=== PATIENT | male | born 1995 | race Caucasian/White ===

== ENCOUNTER 2023-08-01 18:39 | Emergency (ER) | payer BC, SELFPAY ==
[2023-08-01 18:54] VITALS: BP 101/78; PULSE 117; RESP 16; TEMP 36.7; O2SAT 100; BMI 19.5
--- NOTE | 2023-08-01 19:54 | ED_ITS ---
HPI - Abdominal Pain 2 General: Chief Complaint: Abdominal Pain Stated Complaint: Cant Eat Time Seen by Provider: 08/01/23 19:53 History of Present Illness: 28-year-old male presents to the emergen cy department with his mother. Patient states that he normally lives in [facility] but is down in this area because of his grandmother who had a hospitalization and remains hospitalized. Patient states he has had a history of pancreatitis several times and has also been told that his chronic alcohol use has caused him to have atrial fibrillation and congestive heart failure. He endorses having history of intermittent jaundice as well as abdominal ascites from alcohol. He states that today he presents to the emergency department with complaints of feeling full easily and that he is unable to eat more than 3 or 4 bites of anything in a single day before he becomes immediately full and feels nauseated. He states he has cut back on his alcohol intake but has not stopped as previously advised. He also states that he is not taking any of his atrial fibrillation medications or heart failure medications. He does endorse intermittent epigastric pain but states he only has a 2 out of 10 dull epigastric pain today. Associated Symptoms: Reports other (Early satiety) Review of Systems 2 General: Reports: 10 or more systems reviewed and unremarkable except in HPI and below GI: Reports: abdominal pain and other (Early satiety) Psych: Reports: other (Alcohol abuse) Physical Exam 2 Narrative: EXAM NARRATIVE: Constitutional: the patient appears well nourished and of normal development. Vital signs as documented. No acute distress at present. Alert and oriented-to person, place, time and situation. Head, eyes, ears, nose, mouth, throat: Normocephalic, atraumatic. Pupils-equal, round, reactive to light. No scleral icterus. Normal-appearing external ears. Normal appearing nasal turbinates, no drainage. No obvious oral lesions, posterior oropharynx without erythema or exudates. Neck: Supple, trachea is midline, no lymphadenopathy, no jugular venous distension, thyromegaly, or carotid bruits. Carotid upstrokes are brisk bilaterally. Lungs: clear to auscultation to all lung rey. Symmetrical rise and fall of chest, no obvious signs of increased work of breathing at present. Cardiac: Regular rate and rhythm, positive S1, S2. No murmurs, rubs or gallops that I can appreciate Abdomen: Soft, epigastric tenderness to palpation normal active bowel sounds to all quadrants. No palpable masses, the liver is palpable approximately 2 cm to 3 cm below the costal margin Extremities: 2+ pulses in the upper extremities that are equal bilaterally, 2+ pulses in the lower extremities that are equal bilaterally. Non-edematous. Moves all extremities well, sensation to all extremities are noted. Skin: Warm, dry, intact. Course 2 ED course: I again had an extensive discussion with the patient and at his request with his mother who is present in the room. 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 I extensively explained the critical nature of these findings and the extreme importance of additional treatment and care and the risk and complications if care was not immediately undertaken. Patient stated that he understood all of this information and that he did not want to be transferred or receive additional treatment and that he would think about all of the information and would follow-up in [place] where he is from and where his physicians know him. I did advise him that he may return to the emergency department at any time for any reason or if his symptoms worsen or return. Patient verbalized understanding all information is provided and was able to paraphrase the risk and possible complications of refusal of additional care as well as the benefits of allowing additional medical treatment and care. I advised him that I could not discharge him in the condition that he is in and he stated that he wanted to sign out AGAINST MEDICAL ADVICE and understands all the risk and possible complications that could occur Reevaluation(s): Reevaluation #1: I again had an extensive discussion with the patient and at his request with his mother who is present in the room. 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 I extensively explained the critical nature of these findings and the extreme importance of additional treatment and care and the risk and complications if care was not immediately undertaken. Patient stated that he understood all of this information and that he did not want to be transferred or receive additional treatment and that he would think about all of the information and would follow-up in [place] where he is from and where his physicians know him. I did advise him that he may return to the emergency department at any time for any reason or if his symptoms worsen or return. Patient verbalized understanding all information is provided and was able to paraphrase the risk and possible complications of refusal of additional care as well as the benefits of allowing additional medical treatment and care. I advised him that I could not discharge him in the condition that he is in and he stated that he wanted to sign out AGAINST MEDICAL ADVICE and understands all the risk and possible complications that could occur. Time: 21:46 Vital Signs: Vital signs: Vital Signs Temperature 98.0 F 08/01/23 18:54 Pulse Rate 113 H 08/01/23 20:31 Respiratory Rate 16 08/01/23 20:31 Blood Pressure 151/112 08/01/23 20:31 Pulse Oximetry 99 08/01/23 20:31 Oxygen Delivery Me thod Room Air 08/01/23 18:54 MDM - Abdominal Pain Medical Decision Making 28-year-old male with chronic alcohol abuse with resultant heart failure, atrial fibrillation and recurrent pancreatitis presents for complaints of epigastric pain and early satiety. He does have medication noncompliance. He does have access to his medications but has decided not to take them. We will obtain a CBC, CMP and lipase as well a CT scan of the abdomen pelvis to evaluate for pancreatic necrosis, bowel obstruction, esophageal obstruction, necrotizing pancreatitis, thrombus or pancreatic pseudocyst. Lab Data I reviewed the patient's lab results. 08/01/23 20:27 08/01/23 20:27 Labs/Radiology: Radiology Impressions Abdomen/Pelvis CT 08/01/23 20:14 IMPRESSION: 1. Acute necrotizing pancreatitis with developing pseudocysts and complete splenic vein thrombosis. 2. Nonocclusive thrombus within the main portal vein, portal venous confluence and distal SMV. 3. Secondary inflammation of the gastric body with a 6 cm pseudocyst along the greater curvature. THIS REPORT CONTAINS FINDINGS THAT MAY BE CRITICAL TO PATIENT CARE. The findings were verbally communicated by telephone with LINDA Paz at 9:01 PM [employer] on 08/01/2023. The findings were acknowledged and understood. Laboratory Results WBC 8.00 10^3/uL (3.29-11.43) 08/01/23 20: RBC 5.93 10^6/uL (3.85-5.65) H 08/01/23 20: Hgb 19.00 g/dL (11.27-16.99) H 08/01/23 Hct 57.0 % (37-53) H 08/01/23 MCV 96.1 fl (82-101) 08/01/23 MCH 32.0 pg (27-33) 08/01/23 MCHC 33.3 g/dL (30-55) 08/01/23 RDW 12.9 % (12.1-15.1) 08/01/23 Plt Count 215 10^3/cmm (157-399) 08/01/23 MPV 9.0 fL (7.4-10.4) 08/01/23 Neut % (Auto) 74.0 % 08/01/23 Lymph % (Auto) 13.6 % 08/01/23 O'Brien % (Auto) 9.4 % 08/01/23 Eos % (Auto) 1.8 % 08/01/23 Baso % (Auto) 0.6 % 08/01/23 Neut # (Auto) 5.92 10^3/uL (1.8-7.7) 08/01/23 Lymph # (Auto) 1.1 10^3/uL (0.8-4.8) 08/01/23 O'Brien # (Auto) 0.8 10^3/uL (0.2-0.9) 08/01/23 Eos # (Auto) 0.1 10^3/uL (0.0-0.8) 08/01/23 Baso # (Auto) 0.1 10^3/uL (0.0-0.1) 08/01/23 Nucleated RBC % (auto) 0 % 08/01/23 Nucleated RBCs # 0.0 /100WBC 08/01/23 Sodium 133 mmol/L (136-145) L 08/01/23 Potassium 4.2 mmol/L (3.5-5.1) 08/01/23 Chloride 94 mmol/L (98-107) L 08/01/23 Carbon Dioxide 24 mmol/L (22-29) 08/01/23 20: Anion Gap 19.2 (5-19) H 08/01/23 20: BUN 9 mg/dL (6-20) 08/01/23 20: Creatinine 0.8 mg/dL (0.7-1.2) 08/01/23 20: GFR Calculation 116.0 mL/min (90-130) 08/01/23: Glucose 173 mg/dL (65-115) H 08/01/23 20: Calculated Osmolality 279 mOsm/kg (285-295) L 08/01/23: Lactic Acid 1.5 mmol/L (0.5-2.2) 08/01/23: Calcium 9.7 mg/dL (8.5-10.5) 08/01/23: Total Bilirubin 0.8 mg/dL (0.15-1.2) 08/01/23: AST 55 U/L (0-40) H 08/01/23: ALT 56 U/L (0-41) H 08/01/23 20: Alkaline Phosphatase 206 U/L (40-130) H 08/01/23 20: Total Protein 8.4 g/dL (6.6-8.7) 08/01/23: Albumin 4.4 g/dL (3.5-5.2) 08/01/23: Globulin 4.0 g/dL (1.3-4.6) 08/01/23: Lipase 126 U/L (13-60) H 08/01/23 20: All radiology interpretation(s) finalized by discharge Discharge Plan Discharge Patient Disposition: Left Against Medical Advice Clinical Impression: Necrotizing pancreatitis, Portal vein thrombosis, Acute thrombosis of splenic vein Condition: Stable Coding Level of Care Code ED [employer] for [employer] Choudhary
--- NOTE | 2023-08-01 20:14 | CTR_ITS ---
PROCEDURE INFORMATION: Exam: CT Abdomen And Pelvis With Contrast Exam date and time: 08/01/2023 8:33 PM Age: 28 years old Clinical indication: Abdominal pain; Patient HX: Epigastric pain with nausea TECHNIQUE: Imaging protocol: Computed tomography of the abdomen and pelvis with contrast. Radiation optimization: All CT scans at this facility use at least one of these dose optimization techniques: automated exposure control; mA and/or kV adjustment per patient size (includes targeted exams where dose is matched to clinical indication); or iterative reconstruction. Contrast material: OMNI 350; Contrast volume: 100 ml; Contrast route: INTRAVENOUS (IV); COMPARISON: No relevant prior studies available. RADIATION DOSE METRICS: Total DLP (mGy-cm): 302.67 FINDINGS: Lungs: Subsegmental bibasilar atelectasis. The visualized lung bases are otherwise grossly clear. Diaphragm: No evidence of diaphragmatic defect. Liver: Hepatic steatosis. No evidence of focal hepatic lesion. Gallbladder and bile ducts: Unremarkable. No intra-hepatic or extra-hepatic biliary dilatation. Pancreas: There is acute pancreatitis with foci of hypoenhancement suggestive of necrosis involving the pancreatic head and tail and associated inflammatory changes. There are small foci of fluid anterior to the pancreatic body/tail measuring up to 18 mm compatible with developing cirrhosis. Spleen: Unremarkable. Adrenal glands: Unremarkable. Kidneys and ureters: No renal parenchymal abnormality. No hydronephrosis or ureteral stone. Stomach and bowel: The gastric body is secondarily inflamed by the pancreas with loculated fluid/pseudocyst along the greater curvature measuring up to approximately 6 cm (image 13 of the axial series 3 and image 23 of the coronal series 5). No evidence of bowel obstruction. No evidence of free air. Appendix: Normal appendix. Vasculature: There is complete occlusive thrombosis of the splenic vein with prominent short gastric collaterals. There is nonocclusive thrombosis of the main portal vein and portal venous confluence extending into the superior mesenteric vein (images 24-26 of the axial series 3). No aneurysmal dilatation or dissection of the abdominal aorta. The celiac trunk, SMA and KAY are grossly patent. No evidence of IVC thrombus. Lymph nodes: No adenopathy. Urinary bladder: Grossly unremarkable. Reproductive: Grossly unremarkable. Bones/joints: No evidence of acute fracture or aggressive osseous lesion. Prominent L4-L5 disc bulge results in moderate-severe central stenosis with narrowing of the thecal sac to 5 mm AP. There is a suspected component of disc extrusion at this level with superior subligamentous migration. Follow-up outpatient MRI of the lumbar spine may be helpful. Soft tissues: No evidence of fluid collection or hematoma in the superficial soft tissues. CT/CT abdomen pelvis w con* [id number] IMPRESSION: 1. Acute necrotizing pancreatitis with developing pseudocysts and complete splenic vein thrombosis. 2. Nonocclusive thrombus within the main portal vein, portal venous confluence and distal SMV. 3. Secondary inflammation of the gastric body with a 6 cm pseudocyst along the greater curvature. THIS REPORT CONTAINS FINDINGS THAT MAY BE CRITICAL TO PATIENT CARE. The findings were verbally communicated by telephone with LINDA Paz at 9:01 PM [employer] on 08/01/2023. The findings were acknowledged and understood.
[2023-08-01 20:31] VITALS: BP 151/112; PULSE 113; RESP 16; O2SAT 99
[2023-08-01 20:32] LABS: Basophils # 0.1 10^3/uL (0.0-0.1); Basophils % 0.6 %; Eosinophils # 0.1 10^3/uL (0.0-0.8); Eosinophils % 1.8 %; Lymphocytes # 1.1 10^3/uL (0.8-4.8); Lymphocytes % 13.6 %; Mean Corpuscular HGB Conc 33.3 g/dL (30-55); Mean Corpuscular Volume 96.1 fl (82-101); Monocytes # 0.8 10^3/uL (0.2-0.9); Monocytes % 9.4 %; Neutrophils # 5.92 10^3/uL (1.8-7.7); Nucleated Red Blood Cells % 0 %; Platelet Count 215 10^3/cmm (157-399); Red Blood Count 5.93 10^6/uL (3.85-5.65); Red Cell Distribution Width 12.9 % (12.1-15.1)
[2023-08-01] MEDS: iohexol 350 mg/mL 500 mL Btl (per mL) IV (20:37)
[2023-08-01 20:50] LABS: Alanine Aminotransferase 56 U/L (0-41); Albumin Level 4.4 g/dL (3.5-5.2); Alkaline Phosphatase 206 U/L (40-130); Anion Gap 19.2 (5-19); Aspartate Amino Transferase 55 U/L (0-40); Blood Urea Nitrogen 9 mg/dL (6-20); Calcium 9.7 mg/dL (8.5-10.5); Carbon Dioxide 24 mmol/L (22-29); Chloride 94 mmol/L (98-107); Glucose 173 mg/dL (65-115); Lipase 126 U/L (13-60); Osmolality Calculated 279 mOsm/kg (285-295); Potassium 4.2 mmol/L (3.5-5.1); Sodium 133 mmol/L (136-145); Total Bilirubin 0.8 mg/dL (0.15-1.2); Total Protein 8.4 g/dL (6.6-8.7)
[2023-08-01 21:31] LABS: Lactic Sepsis W/Reflex 1.5 mmol/L (0.5-2.2)
[2023-08-01 21:47] LABS: Procalcitonin 0.12 ng/mL (0-0.5)
[2023-08-01 22:07] LABS: Alcohol Level < 10 mg/dL (0-10)
[2023-08-01 22:47] VITALS: BP 151/112; PULSE 113; RESP 16; TEMP 36.7; O2SAT 99
== END 2023-08-01 22:54 | disposition left against medical advice (07) ==
PROVIDERS: Emergency Medicine; Emergency Provider Internal Medicine
DX: K85.91 Acute pancreatitis with uninfected necrosis, unspecified (principal); I81 Portal vein thrombosis; I82.890 Acute embolism and thrombosis of other specified veins
CPT/HCPCS: 74177; 80053; 80307; 83605; 83690; 84145; 85025; 99285; Q9967